=== PATIENT | male | born 1990 | race Asian ===

== ENCOUNTER 2019-02-02 06:31 | Day surgery (SDC) | payer BC, SELFPAY ==
[2019-02-02] MEDS ORDERED: Fentanyl 100 MCG/2 ML VIAL ONE (06:35)
[2019-02-02] MEDS ORDERED: Lidocaine 2% PF 5 ML VIAL ONE (06:35)
[2019-02-02] MEDS ORDERED: Bupivacaine HCl 0.5%/Epinephrine 1:200,000/PF 30 ml Vial ONE (06:35)
[2019-02-02] MEDS ORDERED: Midazolam HCl 2 mg/2 ml Vial ONE (06:35)
[2019-02-02] MEDS ORDERED: Lidocaine 2% Jelly 5 ML TUBE ONE (06:35)
[2019-02-02] MEDS ORDERED: Ketorolac Tromethamine 30 MG/ML VIAL ONE (07:00)
--- NOTE | 2019-02-02 07:31 | HP ---
HISTORY OF PRESENT ILLNESS: A 28-year-old male patient, PhD mechanical engineering at [employer], presents with a rectal foreign body. I was called by [facility] in the wee hours of the morning. The patient has had this adult toy stuck per anus, lower rectum since about 6 or 7 p.m. yesterday. He presents this morning for removal as they could not remove it in [facility]. ALLERGIES: NONE. TOBACCO: None. ALCOHOL: Socially rarely. MEDICATIONS: None. PAST SURGICAL HISTORY: Dental. PAST MEDICAL HISTORY: Noncontributory. PHYSICAL EXAMINATION: VITAL SIGNS: Blood pressure 134/68, 97% sat, respiratory rate 20, 98 degrees, 97 heart rate. HEAD, EARS, EYES, NOSE, AND THROAT: Unremarkable. LUNGS: Clear to auscultation. CARDIAC: Rhythm without murmur or gallop. ABDOMEN: Soft, nontender, and nondistended. EXTREMITIES: Unremarkable. ASSESSMENT: Rectal foreign body. PLAN: Removal under general anesthesia as outpatient. Job ID: [id number]
--- NOTE | 2019-02-02 08:34 | OP ---
DATE OF PROCEDURE: 02/02/2019 PREOPERATIVE DIAGNOSIS: Rectal foreign body. POSTOPERATIVE DIAGNOSIS: Rectal foreign body. PROCEDURE PERFORMED: Removal of rectal foreign body, anoscopy. ANESTHESIA: General anesthesia. FINDINGS: No visible mucosal damage, although there was some bleeding, thought to be mucosal. SPECIMENS REMOVED: Rubber penile adult toy. DESCRIPTION OF PROCEDURE: The patient was taken to the operating room, where under general anesthesia in dorsal lithotomy position, perianal area prepared with Betadine. I was able to palpate the foreign body in the rectum digitally and a Kandice applied carefully removing the foreign body, placing in the bag and submitted to Pathology. There was some old blood in the rectum. Hill-Molina retractor inserted and anoscopy was normal. Lower rectum was normal. It was felt this was probably mucosal irritation. No ongoing bleeding was appreciated. The patient tolerated the procedure well. Job ID: [id number]
[2019-02-02] MEDS ORDERED: Lidocaine 1% PF 5 ML VIAL ONE (13:44)
[2019-02-02] MEDS ORDERED: PROPOFOL 200 MG/20 ML VIAL ONE (13:44)
[2019-02-02] MEDS ORDERED: Ondansetron PF 4 MG/2 ML Vial ONE (13:44)
== END 2019-02-02 10:08 | disposition home or self-care (01) ==
LOC: SDC 06:31
PROVIDERS: ATTEND Specialist
PROC: 0DCQ7ZZ Extirpation of Matter from Anus, Via Natural or Artificial Opening (ICD-10-PCS; principal; 2019-02-02)
DX: T18.5XXA Foreign body in anus and rectum, initial encounter (principal)
CPT/HCPCS: 88300; J0131; J0670; J0690; J1885; J2001; J2250; J2405; J2704; J3010